=== PATIENT | male | born 1965 | race African-American/Black ===

== ENCOUNTER 2016-08-31 13:06 | Emergency (ER) | payer OTHER ==
[~2016-08-31] VITALS: Ht 188 cm; Wt 98.2 kg
[~2016-08-31 13:06] MED LIST: PREDNISONE50 MG PO
[2016-08-31] MEDS ORDERED: PREDNISONE10 MG PO (14:20)
[2016-08-31] MEDS ORDERED: KENALOG,ARISTOC80 GM TP (14:20)
[2016-08-31 14:34] VITALS: BP 154/88
== END 2016-08-31 14:34 | disposition home or self-care (01) ==
LOC: EME 13:06
DX: L30.9 Dermatitis, unspecified (principal); Z77.098 Contact with and (suspected) exposure to other hazardous, chiefly nonmedicinal, chemicals; F17.200 Nicotine dependence, unspecified, uncomplicated
CPT/HCPCS: 99281; 99283

== ENCOUNTER 2017-03-07 18:19 | Observation (INO) | payer OTHER ==
[~2017-03-07] VITALS: Ht 188 cm; Wt 101.7 kg
[~2017-03-07 18:19] MED LIST changes: +KENALOG,ARISTOC80 GM TP; +PREDNISONE10 MG PO
[2017-03-07 18:50] LABS: BASOPHIL (%) 0.5 % (0-1); EOSINOPHIL (%) 3.1 % (0-5); EOSINOPHIL COUNT 0.2 K/uL (0-0.3); HEMATOCRIT 33.2 % (38.0-50.0); HEMOGLOBIN 10.7 G/DL (12.5-16.6); IMMATURE GRANULOCYTE (%) 0.3 % (0.0-0.7); LYMPHOCYTE (%) 27.2 % (15-42); LYMPHOCYTE COUNT 1.6 K/uL (1.0-2.8); MCHC 32.2 G/DL (30.0-36.0); MCV 83.6 FL (86-99); MONOCYTE (%) 7.6 % (3-12); MONOCYTE COUNT 0.4 K/uL (0-0.8); NEUTROPHIL (%) 61.3 % (45-76); NEUTROPHIL COUNT 3.6 K/uL (1.8-6.4); PLATELET COUNT 224 K/uL (156-360); RBC DIS.WIDTH-CV 14.9 % (11.8-14.6); RBC DIS.WIDTH-SD 45.6 % (39-53); RED BLOOD COUNT 3.97 M/uL (4.00-5.50); WHITE BLOOD COUNT 5.8 K/uL (4.1-10.2)
[2017-03-07 18:59] LABS: CHLORIDE 110 mEq/L (99-109); POTASSIUM 4.4 mEq/L (3.7-5.4); SODIUM 139 mEq/L (136-147)
[2017-03-07 19:01] LABS: GLUCOSE 97 mg/dL (70-99)
[2017-03-07 19:04] LABS: SERUM ETHYL ALCOHOL < 10 mg/dL
[2017-03-07 19:05] LABS: CREATININE 2.7 mg/dL (0.6-1.3); GFR ESTIMATE (CALCULATED) 32 mL/min/ (58.99-99999); UREA NITROGEN (BUN) 38 mg/dL (9-23)
[2017-03-07 19:07] LABS: LIPASE 52 U/L (1.0-51.0)
[2017-03-07 19:13] LABS: TROP-I INTERPRETATION NEGATIVE; TROPONIN-I < 0.01 ng/mL (0.0-0.30)
[2017-03-07] MEDS ORDERED: LISINOPRIL5 MG PO (20:59)
[2017-03-07 21:11] LABS: APPEARANCE CLEAR ((CLEAR)); BILIRUBIN NEGATIVE; BLOOD SMALL; COLOR STRAW ((YELLOW)); GLUCOSE (STRIP) NEGATIVE; KETONES NEGATIVE; LEUKOCYTES NEGATIVE; NITRITE NEGATIVE; PROTEIN (STRIP) NEGATIVE; SPECIFIC GRAVITY 1.008 (1.000-1.030); UROBILINOGEN 0.2 MG/DL (0.2-1.0)
[2017-03-07 21:14] LABS: AMPHETAMINE NEGATIVE (500 ng/mL); BARBITURATES NEGATIVE (200 ng/mL); BENZODIAZEPINES NEGATIVE (150 ng/mL); BUPRENORPHINE NEGATIVE (10 ng/mL); COCAINE NEGATIVE (150 ng/mL); METHADONE NEGATIVE (200 ng/mL); METHAMPHETAMINE NEGATIVE (500 ng/mL); OPIATES (MORPHINE) NEGATIVE (100 ng/mL); OXYCODONE NEGATIVE (100 ng/mL); PHENCYCLIDINE NEGATIVE (25 ng/mL); PROPOXYPHENE NEGATIVE (300 ng/mL); THC CANNABINOIDS NEGATIVE (50 ng/mL); TRICYCLIC ANTIDEPRESSANTS NEGATIVE (300 ng/mL)
[2017-03-07 21:16] LABS: BACTERIA NONE SEEN /HPF; EPITHELIAL CELLS NONE SEEN /HPF; MUCUS TRACE /LPF; UCUL ADDED? NO; WHITE BLOOD CELLS 0-5 /HPF (0-5)
[2017-03-07 22:02] VITALS: BP 158/86
[2017-03-08 06:42] LABS: CHLORIDE 113 MEQ/L (99-109); GLUCOSE 89 mg/dL (70-99); SODIUM 141 MEQ/L (136-147); UREA NITROGEN (BUN) 28 mg/dL (9-23)
[2017-03-08 06:43] LABS: CREATININE 1.8 MG/DL (0.6-1.3); GFR ESTIMATE (CALCULATED) 51 mL/min/ (58.99-99999); POTASSIUM 5.4 MEQ/L (3.7-5.4)
[2017-03-08 06:56] LABS: HEMATOCRIT 34.7 % (38.0-50.0); HEMOGLOBIN 11.1 G/DL (12.5-16.6); MCH 26.3 PG (29.0-34.0); MCV 82.2 FL (86-99); PLATELET COUNT 226 K/uL (156-360); RBC DIS.WIDTH-CV 14.9 % (11.8-14.6); RBC DIS.WIDTH-SD 44.8 % (39-53); RED BLOOD COUNT 4.22 M/uL (4.00-5.50); WHITE BLOOD COUNT 4.8 K/uL (4.1-10.2)
[2017-03-08 10:00] VITALS: BP 161/97
[2017-03-08 11:10] VITALS: BP 181/112
== END 2017-03-08 11:45 | disposition home or self-care (01) ==
LOC: EME 18:19 → 5WEST 20:52 → EDOF 20:52 → 5WEST 20:52 → ENRESERV 20:54 → 5WEST 21:52
PROVIDERS: Hospitalist; Physician Assistant Medical
DX: N17.9 Acute kidney failure, unspecified (principal); E86.0 Dehydration; D64.9 Anemia, unspecified; I10 Essential (primary) hypertension; F19.10 Other psychoactive substance abuse, uncomplicated; K21.9 Gastro-esophageal reflux disease without esophagitis; F17.200 Nicotine dependence, unspecified, uncomplicated
CPT/HCPCS: 71045; 80048; 81003; 82140; 83690; 84484; 85025; 85027; G0378; G0480; J1644; J7030